=== PATIENT | male | born 1955 ===

== ENCOUNTER 2022-10-27 02:07 | Outpatient (CLI) | payer SELFPAY ==
[2022-10-28 09:10] LABS: HBs Antibody, Quant 18.3 mIU/mL (See Note); Hepatitis B Surface Ab Positive (See Note)
[2022-10-28 10:38] LABS: Measles IgG Antibody Positive (See Note); Varicella IgG Antibody Positive (See Note)
[2022-10-28 10:40] LABS: Mumps Antibody IgG Positive (See Note)
[2022-10-28 10:42] LABS: Rubella IgG Ab (UVM) Positive (See Note)
[2022-10-29 12:35] LABS: TB Interpretation Negative (Negative)
== END 2022-10-27 02:08 | disposition home or self-care (01) ==
LOC: LBO 02:09
PROVIDERS: Visit Provider Nurse Practitioner Family
DX: Z02.1 Encounter for pre-employment examination (principal); Z11.59 Encounter for screening for other viral diseases; Z11.1 Encounter for screening for respiratory tuberculosis
CPT/HCPCS: 36415; 86706; 86787; 86480; 86735; 86762; 86765